=== PATIENT | male | born 1970 | race Caucasian/White ===

== ENCOUNTER 2017-02-27 15:49 | Emergency (ER) | payer BC ==
[2017-02-27 16:26] VITALS: BP 128/71; BMI 32.5
[2017-02-27] MEDS ORDERED: IBUPROFEN 600 MG TABLET (FP) PO ONE ×2 (17:04→17:12)
--- NOTE | 2017-02-27 17:04 | PDOC ---
History of Present Illness - General Chief Complaint: Cold Symptoms Stated Complaint: FEVER, COUGH Time Seen by Provider: 02/27/17 17:03 History Source: Patient Exam Limitations: No Limitations - History of Present Illness Initial Comments: 02/27/17 17:04 CHIEF COMPLAINT: Fever HISTORY OF PRESENT ILLNESS: This is an otherwise healthy 46 year old male who presents for evaluation of fever, bodyaches, and cough productive of scant white sputum since Sunday, after returning from [place]. He denies shortness of breath and chest pain. His two children are also being seen in the ED with similar symptoms. V/s on arrival are notable for T 102.4 orally and P 99. REVIEW OF SYSTEMS: GENERAL/CONSTITUTIONAL: Two days of fevers/chills. Generalized weakness, malaise . No weight change. HEAD, EYES, EARS, NOSE AND THROAT: Sore throat. No ear pain or discharge. CARDIOVASCULAR: No chest pain or palpitations. RESPIRATORY: Cough productive of scant white sputum. No wheezing or shortness of breath. GASTROINTESTINAL: No nausea, vomiting, diarrhea or constipation. GENITOURINARY: No dysuria, frequency, or change in urination. MUSCULOSKELETAL: No joint or muscle swelling or pain. No neck or back pain. SKIN: No rash or easy bruising. NEUROLOGIC: No headache, vertigo, loss of consciousness, or loss of sensation. HEMATOLOGIC/LYMPHATIC: No anemia, easy bleeding, or history of blood clots. ALLERGIC/IMMUNOLOGIC: No hives or skin allergy. No latex allergy. PHYSICAL EXAM: GENERAL: The patient is awake, alert, and fully oriented, in no acute distress. ENT: Pupils equal, round and reactive to light, extraocular movements intact, sclera anicteric, conjunctiva clear. Neck supple. LUNGS: Clear to auscultation bilaterally. Normal excursion. No respiratory distress or use of accessory muscles. CV: RRR, S1/S2, no MRG. Cap refill < 2 sec. ABDOMEN: Soft, non-distended, non-tender. EXTREMITIES: Normal range of motion, no edema. NEUROLOGICAL: Normal speech, normal gait. CN II-XII grossly intact. PSYCH: Normal mood, normal affect. SKIN: Warm, dry, normal turgor, no rashes or lesions noted. Past History - Past Medical History Allergies/Adverse Reactions: Allergies Allergy/AdvReac Type Severity Reaction Status Date / Time No Known Allergies Allergy Verified 02/27/17 16:21 Home Medications: Ambulatory Orders Ibuprofen [Motrin -] 600 mg PO QID PRN #30 tablet 02/27/17 Oseltamivir Phosphate [Tamiflu] 75 mg PO BID #9 capsule 02/27/17 Other medical history: DENIES. - Psycho/Social/Smoking Cessation Hx Suicidal Ideation: No Smoking History: Never smoked *Physical Exam - Vital Signs Last Vital Signs Temp Pulse Resp BP Pulse Ox 102.4 F H 99 H 20 128/71 95 02/27/17 16:24 02/27/17 16:24 02/27/17 16:24 02/27/17 16:24 02/27/17 16:24 Medical Decision Making - Medical Decision Making 02/27/17 17:38 A/P: 46 year old male with fever and URI symptoms. 1. Ibuprofen 600mg po for fever 2. Influenza swab 3. Re-assess 02/27/17 19:02 -Flu B positive. *DC/Admit/Observation/Transfer Diagnosis at time of Disposition: Influenza B - Discharge Dispostion Disposition: HOME Condition at time of disposition: Stable Admit: No - Prescriptions Prescriptions: Ibuprofen [Motrin -] 600 mg PO QID PRN #30 tablet PRN Reason: Fever Or Pain Oseltamivir Phosphate [Tamiflu] 75 mg PO BID #9 capsule - Referrals Referrals: Serenity Ortega MD [Staff Physician] - - Patient Instructions Printed Discharge Instructions: DI for Influenza -- Adult Additional Instructions: You have the flu. Please stay home from work! Take Tamiflu as prescribed and ibuprofen as needed for fever/pain. Drink plenty of fluids. Follow up with your primary care doctor as needed. Return here for difficulty breathing or any other concerning symptoms. - Post Discharge Activity Work/School Note: Back to Work
[2017-02-27] MEDS ORDERED: IBUPROFEN 400 MG TABLET (FP) PO ONE (17:20)
[2017-02-27] MEDS ORDERED: OSELTAMIVIR PHOSPHATE 75 MG CAPSULE PO ONE (19:02)
[2017-02-27 19:26] VITALS: PULSE 98; TEMP 99.9
== END 2017-02-27 19:56 | disposition home or self-care (01) ==
LOC: JERFT 15:49
DX: J10.1 Influenza due to other identified influenza virus with other respiratory manifestations (principal)
CPT/HCPCS: 87804; 99281-25